=== PATIENT | male | born 1945 | race Caucasian/White ===

== ENCOUNTER 2019-07-03 10:50 | Emergency (ER) | payer OTHER ==
[~2019-07-03] VITALS: Ht 175.3 cm; Wt 81.6 kg
[2019-07-03] MEDS ORDERED: VASOTEC10 MG (11:37)
[2019-07-03] MEDS ORDERED: XANAX1 MG (11:37)
[2019-07-03] MEDS ORDERED: DICLOFENAC SODI50 MG PO (14:37)
[2019-07-03] MEDS ORDERED: SKELAXIN800 MG PO (14:37)
== END 2019-07-03 15:34 | disposition home or self-care (01) ==
LOC: ER 10:50
DX: S33.5XXA Sprain of ligaments of lumbar spine, initial encounter (principal); S00.03XA Contusion of scalp, initial encounter; S19.89XA Other specified injuries of other specified part of neck, initial encounter; W18.09XA Striking against other object with subsequent fall, initial encounter; Y93.89 Activity, other specified; Y92.89 Other specified places as the place of occurrence of the external cause; Y99.8 Other external cause status

== ENCOUNTER → 2023-01-12 | Emergency (ER) | payer OTHER ==
[~2023-01-12] VITALS: Ht 175.3 cm; Wt 90.7 kg
[~2023-01-12] MED LIST: DICLOFENAC SODI50 MG PO; SKELAXIN800 MG PO; VASOTEC10 MG; XANAX1 MG
== END | disposition left against medical advice (07) ==
LOC: ER 15:51
DX: K92.2 Gastrointestinal hemorrhage, unspecified (principal); I10 Essential (primary) hypertension; Z88.2 Allergy status to sulfonamides; Z88.0 Allergy status to penicillin

== ENCOUNTER → 2024-02-02 | Emergency (ER) | payer OTHER ==
[~2024-02-02] VITALS: Ht 175.3 cm; Wt 81.6 kg
[~2024-02-02] MED LIST changes: +ALLERGY RELIEF10 M4; +ALPRAZOLAM ODT1 MG; +ARICEPT5 MG; +COMPLEX B-1001 EACH; +GORDON'S VITE A75 GM; +PEPCID AC10 MG; +VITAMIN D31 ML; +ZESTRIL5 MG
== END | disposition left against medical advice (07) ==
LOC: ER 15:39
DX: Z53.21 Procedure and treatment not carried out due to patient leaving prior to being seen by health care provider (principal)

== ENCOUNTER → 2024-07-26 | Emergency (ER) | payer OTHER ==
[~2024-07-26] VITALS: Ht 175.3 cm; Wt 68.0 kg
[~2024-07-26] MED LIST changes: +0.9 % SODIUM CHLORIDE 1,000 ML IV STA; +ACETAMINOPHEN 325 MG TABLET PO PRN; +ACETAMINOPHEN 500 MG GEL..CAP PO ONE; +CEFTRIAXONE SODIUM 1,000 MG VIAL ONE; +CHLORDIAZEPOXIDE HCL 25 MG CAPSULE PO ONE; +CLONAZEPAM0.125 MG; +DIPHENHYDRAMINE HCL 50 MG/ML VIAL 1ML IM STA; +DIPHENHYDRAMINE HCL 50 MG/ML VIAL 1ML ONE; +FAMOTIDINE/PF 20 MG/2 ML VIAL ONE; +FAMOtidine 10 MG/ML (4ML VIAL) IV STA; +FOLIC ACID 5 MG/ML VIAL IV NR; +HALOPERIDOL 0.5 MG TABLET PO ONE; +HALOPERIDOL 5 MG TABLET PO ONE; +HALOPERIDOL LACTATE 5 MG/ML AMPUL IM STA; +HALOPERIDOL LACTATE 5 MG/ML AMPUL ONE; +LORazepam 2 MG/ML VIAL IV PRN; +LORazepam 2 MG/ML VIAL ONE; +MULTIVIT INFUSN,ADULT 4,VIT K 10 ML VIAL IV ONE; +THIAMINE HCL 100 MG/ML 2 ML VIAL IV ONE; +THIAMINE HCL 100 MG/ML 2 ML VIAL ONE; +TRAZODONE HCL150 MG
[2024-07-26 12:48] LABS: HEMATOCRIT 47.9 % (39.0-48.0); HEMOGLOBIN 16.6 g/dL (13-16.00); MEAN CELL VOLUME 100.1 fL (80.0-100.00); MEAN CORPUSCULAR HEMOGLOBIN 34.7 pg (27.00-32.0); MEAN CORPUSCULAR HGB CONC 34.6 g/dl (32.0-36.0); PLATELET COUNT 166 K/uL (150-450); RED BLOOD COUNT 4.78 M/uL (4.00-6.00); RED CELL DISTRIBUTION WIDTH 12.6 % (11.5-14.5)
[2024-07-26 13:23] LABS: ALBUMIN 4.1 gm/dL (3.4-5.0); BILIRUBIN TOTAL 0.9 mg/dL (0.3-1.2); BILIRUBIN,CONJUGATED 0.2 mg/dL (0.0-0.2); BILIRUBIN,UNCONJUGATED 0.7 mg/dL (0.0-0.6); CALCIUM 9.3 mg/dL (8.5-10.1); CREATININE SERUM 1.15 mg/dL (0.70-1.30); GFR 61.83; POTASSIUM 3.68 mEq/L (3.5-5.1)
[2024-07-26 14:53] LABS: URINE APPEARANCE Clear; URINE BILIRRUBIN Negative (NEGATIVE); URINE BLOOD Trace; URINE COLOR Yellow; URINE GLUCOSE Negative (NEGATIVE); URINE KETONE 15 (NEGATIVE); URINE LEUKOCYTE Negative; URINE NITRATE Negative; URINE PROTEIN Negative (NEGATIVE)
[2024-07-26 14:56] LABS: URINE BACTERIA 6.2 uL (0.0-1933); URINE EPITHELIAL CELLS 3.7 uL (0.0-38.8); URINE RBC 31.4 uL (0.0-20.8); URINE WBC 5.2 uL (0.0-23.2)
[2024-07-26 15:52] LABS: URINE CRYSTALS FEW /HPF; URINE MUCUS SCANT
[2024-07-26 19:02] LABS: COCAINE NEGATIVE (NEGATIVE); METHADONE NEGATIVE (NEGATIVE); OPIATES NEGATIVE (NEGATIVE); THC ( Cannabinoids) NEGATIVE (NEGATIVE)
[2024-07-26 19:10] LABS: BILIRUBIN TOTAL 0.76 mg/dL (0.3-1.2); BILIRUBIN,CONJUGATED 0.22 mg/dL (0.0-0.2); BILIRUBIN,UNCONJUGATED 0.54 mg/dL (0.0-0.6); MAGNESIUM 2.3 mg/dL (1.8-2.4); TOTAL PROTEIN 6.5 gm/dL (6.4-8.2)
== END | disposition home or self-care (01) ==
LOC: ER 10:14
PROVIDERS: General Practice
DX: F13.10 Sedative, hypnotic or anxiolytic abuse, uncomplicated (principal); F10.10 Alcohol abuse, uncomplicated; R63.0 Anorexia; G30.8 Other Alzheimer's disease; F02.80 Dementia in other diseases classified elsewhere, unspecified severity, without behavioral disturbance, psychotic disturbance, mood disturbance, and anxiety; I10 Essential (primary) hypertension; Z88.0 Allergy status to penicillin
CPT/HCPCS: 93005; 96365; 99283; J3490

== ENCOUNTER 2024-07-27 17:10 | Emergency (ER) | payer OTHER ==
[~2024-07-27] VITALS: Ht 170.2 cm; Wt 63.5 kg
[~2024-07-27 17:10] MED LIST changes: -0.9 % SODIUM CHLORIDE 1,000 ML IV STA; -ACETAMINOPHEN 325 MG TABLET PO PRN; -ACETAMINOPHEN 500 MG GEL..CAP PO ONE; -CEFTRIAXONE SODIUM 1,000 MG VIAL ONE; -CHLORDIAZEPOXIDE HCL 25 MG CAPSULE PO ONE; -DIPHENHYDRAMINE HCL 50 MG/ML VIAL 1ML IM STA; -DIPHENHYDRAMINE HCL 50 MG/ML VIAL 1ML ONE; -FAMOTIDINE/PF 20 MG/2 ML VIAL ONE; -FAMOtidine 10 MG/ML (4ML VIAL) IV STA; -FOLIC ACID 5 MG/ML VIAL IV NR; -HALOPERIDOL 0.5 MG TABLET PO ONE; -HALOPERIDOL 5 MG TABLET PO ONE; -HALOPERIDOL LACTATE 5 MG/ML AMPUL IM STA; -HALOPERIDOL LACTATE 5 MG/ML AMPUL ONE; -LORazepam 2 MG/ML VIAL IV PRN; -LORazepam 2 MG/ML VIAL ONE; -MULTIVIT INFUSN,ADULT 4,VIT K 10 ML VIAL IV ONE; -THIAMINE HCL 100 MG/ML 2 ML VIAL IV ONE; -THIAMINE HCL 100 MG/ML 2 ML VIAL ONE
[2024-07-28] MEDS ORDERED: FAMOtidine 10 MG/ML (4ML VIAL) IV STA (08:54)
[2024-07-28] MEDS ORDERED: MAG HYDROX/ALUMINUM HYD/SIMETH 30 ML BLIST.PACK PO STA (08:54)
[2024-07-28] MEDS ORDERED: FAMOTIDINE/PF 20 MG/2 ML VIAL ONE (09:01)
[2024-07-28] MEDS ORDERED: MAG HYDROX/ALUMINUM HYD/SIMETH 30 ML BLIST.PACK PO ONE (09:01)
[2024-07-28] MEDS ORDERED: LORazepam 2 MG/ML VIAL IM STA (15:08)
[2024-07-28] MEDS ORDERED: LORazepam 2 MG/ML VIAL ONE (15:49)
[2024-07-28] MEDS ORDERED: ACETAMINOPHEN 500 MG GEL..CAP PO ONE (17:15)
[2024-07-29] MEDS ORDERED: THIAMINE HCL 100 MG/ML 2 ML VIAL IV ONE (12:15)
[2024-07-29] MEDS ORDERED: THIAMINE HCL 100 MG/ML 2 ML VIAL ONE (12:33)
== END 2024-07-29 17:39 | disposition home or self-care (01) ==
LOC: ER 17:10
DX: R53.81 Other malaise (principal); F10.20 Alcohol dependence, uncomplicated; I10 Essential (primary) hypertension; Z88.8 Allergy status to other drugs, medicaments and biological substances
CPT/HCPCS: 36415; 96365; 96372; 99282; J3490 ×3

== ENCOUNTER 2025-11-15 14:03 | Emergency (ER) | payer OTHER ==
[~2025-11-15] VITALS: Ht 175.3 cm; Wt 72.1 kg
[2025-11-15 14:41] VITALS: BP 139/72; O2SAT 97
[2025-11-15 16:35] LABS: BASO % 0.4 % (0.1-1.2); EOS # 0.17 (0.04-0.54); EOS % 2.4 % (0.7-7.0); LYMPH # 1.08 (1.18-3.74); LYMPH % 15.0 % (19.3-53.1); MEAN PLATELET VOLUME 10.50 fl (9.4-12.4); MONO # 0.52 (0.24-0.82); MONO % 7.2 % (4.7-12.5); NEUT # 5.38 (1.56-6.13); NEUT % 74.7 % (34.0-71.1); RED CELL DISTRIBUTION WIDTH 12.4 % (11.6-14.4)
[2025-11-15 16:54] LABS: ALT/SGPT 11.0 U/L (12-78); AST/SGOT 8.0 U/L (15-37); BILIRUBIN TOTAL 0.61 mg/dL (0.3-1.2); BUN CREA RATIO 21.0 (7.0-25.0); CREATININE SERUM 1.13 mg/dL (0.70-1.30); GFR 62.76; GLOBULINA 2.9 G/DL (2.4-3.5); GLUCOSE FASTING 93.0 mg/dL (65-100); OSMOLALITY SERUM 289.0 MOSM/KG (275-295)
[2025-11-15 17:00] LABS: INR 1.03
[2025-11-15] MEDS ORDERED: KETOROLAC TROMETHAMINE 30 MG VIAL IM STA (20:39)
[2025-11-15] MEDS ORDERED: ORPHENADRINE CITRATE 30 MG/ML AMPUL IM STA (20:39)
[2025-11-15] MEDS ORDERED: DEXAMETHASONE SODIUM PHOSPHATE 4 MG/ML VIAL IM STA (20:40)
[2025-11-15] MEDS ORDERED: ORPHENADRINE CITRATE 30 MG/ML AMPUL ONE (20:44)
[2025-11-15] MEDS ORDERED: KETOROLAC TROMETHAMINE 30 MG VIAL ONE (20:44)
[2025-11-15] MEDS ORDERED: DEXAMETHASONE SODIUM PHOSPHATE 4 MG/ML VIAL ONE (20:44)
[2025-11-15] MEDS ORDERED: IBU600 MG PO (21:21)
== END 2025-11-15 21:45 | disposition home or self-care (01) ==
LOC: ER 14:03
PROVIDERS: Physician Assistant Medical
DX: M54.2 Cervicalgia (principal); W19.XXXA Unspecified fall, initial encounter; I10 Essential (primary) hypertension; R51.9 Headache, unspecified; Z88.8 Allergy status to other drugs, medicaments and biological substances
CPT/HCPCS: 36415; 70450; 71045; 72125; 96372; 99284; J1100; J1885; J2360